=== PATIENT | male | born 1985 | race Caucasian/White ===

== ENCOUNTER 2022-03-13 15:59 | Observation (INO) ==
[2022-03-13 17:07] LABS: Basophils # (auto) 0.05 K/uL (0-0.2); Basophils % (auto) 0.7 %; Eosinophils # (auto) 0.07 K/uL (0-0.50); Hematocrit (blood only) 42.1 % (40.1-51.0); Hemoglobin 14.4 g/dl (14.0-18.0); Immature Granulocytes # (auto) 0.11 K/uL (0.00-0.02); Immature Granulocytes % (auto) 1.5 %; Lymphocytes # (auto) 1.35 K/uL (1.2-3.4); Lymphocytes % (auto) 18.7 %; Mean Corpuscular Hemoglobin 30.8 pg (25.0-34.0); Mean Corpuscular Hgb Conc 34.2 g/dL (32.0-36.0); Mean Corpuscular Volume 90.1 fL (80.0-100.0); Mean Platelet Volume 9.9 fL (9.4-12.4); Monocytes # (auto) 0.91 K/uL (0.24-0.82); Monocytes % (auto) 12.6 %; Neutrophils # (auto) 4.74 K/uL (1.4-6.5); Neutrophils % (auto) 65.5 %; Platelet Count 357 K/uL (130-400); RDW Standard Deviation 39.5 fL (36.4-46.3); Red Blood Count 4.67 M/uL (4.63-6.08); White Blood Count 7.23 K/ul (4.8-10.8)
[2022-03-13 17:42] LABS: BUN Creatinine Ratio 6.7 (10-20); Calcium 9.3 mg/dl (8.5-10.1); Creatinine Clr Calc Pharmacy 137.6 ml/min; Est GFR (Non-African American) 108.7 ml/min; Potassium 3.8 mmol/L (3.5-5.1)
[2022-03-13] MEDS ORDERED: MoRPHine SULFATE 10 MG/ML CARP/VIAL IV STA (18:20)
--- NOTE | 2022-03-13 18:29 | Emergency Department Note ---
History of Present Illness General Chief complaint: Pilonidal Cyst Stated complaint: ABCESS NEAR RECTUM Time Seen by Provider: 03/13/22 17:59 History of Present Illness Maximum Pain Intensity: 9 36-year-old male presents to the ED with a chief complaint of pain in the area of the anus and traveling towards the perineum. The patient states that he has had the pain for about a week and has been trying warm soaks and Tylenol. His symptoms have progressively worsened to the point where he has significant pain here today. Difficulty moving because of the pain. Home Medications Medication Instructions Recorded Confirmed Type Medical Marijuana 1 dose NA UD PRN as directed 03/13/22 03/13/22 History acetaminophen 500 mg tablet 1,000 mg PO Q6H PRN Pain 03/13/22 03/13/22 History (Tylenol Extra Strength) Allergies Allergy/AdvReac Type Severity Reaction Status Date / Time No Known Allergies Allergy Unverified 03/13/22 17:44 Past Med/Surg History Social History Smoking Status: Current every day smoker Tobacco Type: Cigarettes Feels Safe at Home: Yes Review of Systems A total of 10 systems reviewed and were otherwise negative Physical Exam Vital Signs Vital Signs - 24 hr 03/13/22 16:17 03/13/22 18:00 03/13/22 21:01 Temperature 36.8 C Temperature Source Temporal Artery Scan Pulse Rate 122 H Pulse Rate [Left Finger] 104 H 89 Pulse Rhythm [Left Finger] Pulse Strength [Left Finger] Respiratory Rate 18 16 Respiratory Effort / Characteristics Non-Labored Spontaneous Respiratory Depth Normal Respiratory Pattern Regular Blood Pressure 124/67 Blood Pressure [Left Arm] 166/112 H 155/87 H Blood Pressure Mean 86 Blood Pressure Mean [Left Arm] 130 109 Blood Pressure Position Sitting Pulse Oximetry 99 100 96 Oxygen Delivery Method Room Air Room Air Room Air Oxygen Flow Rate Sepsis Recent Fever Within 48 Hours No Sepsis New/Unexplained Change in Mental Status N/A Sepsis Action Taken by Nursing No Action Required 03/13/22 23:00 Temperature 36.6 C Temperature Source Oral Pulse Rate Pulse Rate [Left Finger] 102 H Pulse Rhythm [Left Finger] Regular Pulse Strength [Left Finger] Normal Respiratory Rate 18 Respiratory Effort / Characteristics Respiratory Depth Respiratory Pattern Blood Pressure Blood Pressure [Left Arm] 133/85 Blood Pressure Mean Blood Pressure Mean [Left Arm] 101 Blood Pressure Position Pulse Oximetry 100 Oxygen Delivery Method Oxymask Oxygen Flow Rate 4 Sepsis Recent Fever Within 48 Hours Sepsis New/Unexplained Change in Mental Status Sepsis Action Taken by Nursing CONSTITUTIONAL/VITAL SIGNS: Reviewed / noted above. GENERAL: Non-toxic in appearance. INTEGUMENTARY: Warm, dry, and [place]. HEAD: Normocephalic. EYES: without scleral icterus or trauma. ENT/OROPHARYNX: clear and moist. RESPIRATORY: No increased work of breathing. CARDIOVASCULAR: Regular rate and rhythm. GI/ABDOMEN: Soft and nontender. No organomegaly or pulsatile mass. PERINEUM: The patient does have some swelling in the area of the perineum from the anus. There is some induration in that area as well as exquisite tenderness. EXTREMITIES: Warm and well perfused. NEUROLOGICAL: Intact without focal deficits. PSYCHIATRIC: normal affect. MUSCULOSKELETAL: Normally developed with good muscle tone. TRIAGE NURSING DOCUMENTATION REVIEWED. Course Administered Medications Cefoxitin Sodium (Mefoxin) 2,000 mg in 60 mls @ 100 mls/hr IV ONCE STA Stop: 03/13/22 23:24 Last Admin: 03/13/22 22:25 Dose: 100 mls/hr Documented By: TAP Discontinued Medications Bupivacaine HCl (Bupivacaine 0.5 % 5 Mg/1 Ml Mpf 30ml Vial) Confirm Administered Dose 30 ml .ROUTE .STK-MED ONE Stop: 03/13/22 21:26 Last Admin: 03/13/22 22:46 Dose: 30 ml Documented By: NOAH Bupivacaine Liposome (Bupivacaine Liposome 1.3% 266 Mg/20 Ml Vial) Confirm Administered Dose 266 mg .ROUTE .STK-MED ONE Stop: 03/13/22 22:00 Last Admin: 03/13/22 22:47 Dose: 266 mg Documented By: NOAH Hydromorphone HCl (Hydromorphone Inj 2 Mg/Ml Syr/Vial) 2 mg IV NOW STA Stop: 03/13/22 18:47 Last Admin: 03/13/22 19:02 Dose: 2 mg Documented By: TONI Hydromorphone HCl (Hydromorphone Inj 2 Mg/Ml Syr/Vial) 2 mg IV NOW STA Stop: 03/13/22 19:51 Last Admin: 03/13/22 19:55 Dose: 2 mg Documented By: TONI Ioversol (Optiray 350 100ml) 84 ml IV ONCE ONE Stop: 03/13/22 19:21 Last Admin: 03/13/22 19:11 Dose: 84 ml Documented By: BRRodger Lidocaine HCl (Lidocaine 2% Jelly 5 Ml Tube) Confirm Administered Dose 5 ml EXT .STK-MED ONE Stop: 03/13/22 21:26 Last Admin: 03/13/22 22:47 Dose: Not Given Documented By: CLF Morphine Sulfate (Morphine Sulfate 10 Mg/Ml Carp/Vial) 6 mg IV NOW STA Stop: 03/13/22 18:21 Last Admin: 03/13/22 18:25 Dose: 6 mg Documented By: ML Medical Decision Making Differential Diagnosis Differential includes an abscess, fistula, infection, other. Medical Records Attestation: I reviewed the patient's medical records. Home Medications Current Medication List: was personally reviewed by me Laboratory Data Attestation: I reviewed the patient's lab results. Result diagrams: 03/13/22 16:50 03/13/22 16:50 Lab Results 03/13/22 03/13/22 Range/Units 16:50 16:50 WBC 7.23 (4.8-10.8) K/ul RBC 4.67 (4.63-6.08) M/uL Hgb 14.4 (14.0-18.0) g/dl Hct 42.1 (40.1-51.0) % MCV 90.1 (80.0-100.0) fL MCH 30.8 (25.0-34.0) pg MCHC 34.2 (32.0-36.0) g/dL RDW Std Deviation 39.5 (36.4-46.3) fL RDW Coeff of Lauryn 12.0 (11.5-14.5) % Plt Count 357 (130-400) K/uL MPV 9.9 (9.4-12.4) fL Immature Gran % (Auto) 1.5 % Neut % (Auto) 65.5 % Lymph % (Auto) 18.7 % Allen % (Auto) 12.6 % Eos % (Auto) 1.0 % Baso % (Auto) 0.7 % Neut # (Auto) 4.74 (1.4-6.5) K/uL Lymph # (Auto) 1.35 (1.2-3.4) K/uL Allen # (Auto) 0.91 H (0.24-0.82) K/uL Eos # (Auto) 0.07 (0-0.50) K/uL Baso # (Auto) 0.05 (0-0.2) K/uL Immature Gran # (Auto) 0.11 H (0.00-0.02) K/uL Sodium 140 (136-145) mmol/L Potassium 3.8 (3.5-5.1) mmol/L Chloride 104 (98-107) mmol/L Carbon Dioxide 27 (21-32) mmol/L Anion Gap 9 (3-11) BUN 6 (6-23) mg/dl Creatinine 0.90 (0.6-1.4) mg/dl Est Cr Clr Drug Dosing 137.6 ml/min Est GFR ( Amer) 126.0 ml/min Est GFR (Non-Af Amer) 108.7 ml/min BUN/Creatinine Ratio 6.7 L (10-20) Glucose 89 (70-99(Fasting)) mg/dl Calcium 9.3 (8.5-10.1) mg/dl Imaging Data Radiologist's Impression: Pelvis CT 03/13/22 18:21 CT pelvis w/IV con only CLINICAL HISTORY: Evaluate anal abscess. COMPARISON STUDY: No previous studies for comparison. TECHNIQUE: Axial images of the pelvis were obtained following intravenous injection of 84 cc of Optiray 350 IV. Sagittal and coronal reconstructions were viewed. Automated exposure control was utilized for the study. A dose lowering technique was utilized adhering to the principles of ALARA. FINDINGS: Note is made of a rim-enhancing perianal fluid collection consistent with an abscess that measures 2.2 x 2 x 1.3 cm. The relationship to the anus is difficult to determine on this exam although this is likely anterior to the anus. No supralevator component is present. No additional fluid collections are present. The caliber and wall thickness of visualized small and large bowel are normal. The appendix is normal. There is no pelvic lymphadenopathy. No soft tissue gas is identified on this exam. No acute fracture or suspicious lesion within visualized skeletal structures is present. Bladder is unremarkable by CT. Major vasculature is patent. IMPRESSION: 2.2 x 2 x 1.3 cm perianal abscess, likely anterior to the anus. ACT 112: Negative or not required by law. Electronically signed by: Kendall Schwartz M.D. 03/13/2022 7:37 PM MDM Narrative 36-year-old male presents with pain in the area of the anus and perineum. Symptoms started about a week ago and significantly worsened to the point where he is unable to move without significant pain. He has exquisite tenderness with minimal palpation of the site of the perineum. His CBC and chemistry panel was unremarkable. CT scan shows a 2 x 2 centimeter perianal abscess. I did speak with general surgery about this. Dr. Aguilar took the patient to the OR for drainage. Impression & Plan Perianal abscess Discharge Plan Visit Data Chief Complaint: Pilonidal Cyst Stated Complaint: ABCESS NEAR RECTUM ED Provider: Jules Chen Discharge Problem: Perianal abscess Discharge Instructions Interventions: ED Discharge Assessment Last Done: 03/13/22 21:12 Forms Stand Alone Forms: My [facility] Prescriptions Prescriptions: No Action acetaminophen [Tylenol Extra Strength] 500 mg Tablet 1,000 mg PO Q6H PRN (Reason: Pain) Medical Marijuana 1 dose NA UD PRN (Reason: as directed) Referrals Referrals: PCP,NO [Primary Care Provider] -
[2022-03-13] MEDS ORDERED: HYDROmorphone INJ 2 MG/ML SYR/VIAL IV STA ×2 (18:46→19:50)
[2022-03-13] MEDS ORDERED: OPTIRAY 350 100ml IV ONE (19:20)
--- NOTE | 2022-03-13 19:39 | CT Scan Report ---
CT pelvis w/IV con only CLINICAL HISTORY: Evaluate anal abscess. COMPARISON STUDY: No previous studies for comparison. TECHNIQUE: Axial images of the pelvis were obtained following intravenous injection of 84 cc of Optir ay 350 IV. Sagittal and coronal reconstructions were viewed. Automated exposure control was utilized for the study. A dose lowering technique was utilized adhering to the principles of ALARA. FINDINGS: Note is made of a rim-enhancing perianal fluid collection consistent with an abscess that m easures 2.2 x 2 x 1.3 cm. The relationship to the anus is difficult to determine on this exam althoug h this is likely anterior to the anus. No supralevator component is present. No additional fluid darwin ections are present. The caliber and wall thickness of visualized small and large bowel are normal. T he appendix is normal. There is no pelvic lymphadenopathy. No soft tissue gas is identified on this e xam. No acute fracture or suspicious lesion within visualized skeletal structures is present. Bladder is unremarkable by CT. Major vasculature is patent. IMPRESSION: 2.2 x 2 x 1.3 cm perianal abscess, likely anterior to the anus. ACT 112: Negative or not required by law. Electronically signed by: Kendall Schwartz M.D. 03/13/2022 7:37 PM
--- NOTE | 2022-03-13 20:42 | History & Physical Report ---
Date of Service March 13, 2022 Assessment & Plan (1) Perianal abscess: Plan: Indurated soft tissue and CT findings consistent with perianal abscess. Patient unable to tolerate bedside I&D. Plan to proceed to the OR tonight for incision and drainage of abscess. Risks to include, but not limited to, bleeding, infection, recurrent abscess, fistula. History of Present Illness Primary Care Provider: NO PCP Darrell is being seen today for evaluation of perirectal abscess. He reports pain started one week ago, has been increasing in intensity. He has had no drain age from the area. Pain is aggravated by coughing and moving. He reports remote history of MRSA from a gluteal abscess about 9 years ago, that was not near his current area of pain. He underwent CT in ED today which reveals IMPRESSION: 2.2 x 2 x 1.3 cm perianal abscess, likely anterior to the anus. He has no other significant pact medical history. He does smoke medical marijuana, has not had any in the past week. Allergies Allergy/AdvReac Type Severity Reaction Status Date / Time No Known Allergies Allergy Unverified 03/13/22 17:44 Home Medications Medication Instructions Recorded Confirmed Type Medical Marijuana 1 dose NA UD PRN as directed 03/13/22 03/13/22 History acetaminophen 500 mg tablet 1,000 mg PO Q6H PRN Pain 03/13/22 03/13/22 History (Tylenol Extra Strength) Past Med/Surg History Social History Smoking Status: Current every day smoker Tobacco Type: Cigarettes Feels Safe at Home: Yes Review of Systems Review of Systems: All systems reviewed & are unremarkable except as noted in HPI & below Physical Exam Physical Exam: Temp Pulse Resp BP Pulse Ox O2 Del Method 36.8 C 104 H 18 166/112 H 100 03/13/22 16:17 03/13/22 18:00 03/13/22 16:17 03/13/22 18:00 03/13/22 18:00 03/13/22 18:00 Constitutional: well developed and well nourished; no acute distress and + uncomfortable Eyes: PERRL, conjunctivae normal, anicteric sclerae Neck: trachea midline, no thyromegaly Respiratory: normal respiratory effort, lungs clear to auscultation Cardiovascular: RRR, no murmur, no edema Gastrointestinal (Abdomen): normal bowel sounds, soft, nontender, no hepatosplenomegaly + indurated area anterior to the anus with significant pain to mild touch. No fluctuance. Minimal erythema of the overlying soft tissue Musculoskeletal: no cyanosis or clubbing, extremities motor strength 5/5 Skin: no rashes, warm and dry + perianal abscess as noted above Results & Data Results & Data ([facility]) Vital Signs (Past 12 Hours) Vital Signs Temp Pulse Pulse Resp BP BP Pulse Ox 03/13/22 18:00 104 H 166/112 H 100 03/13/22 16:17 36.8 C 122 H 18 124/67 99 O2 Del Method 03/13/22 18:00 Room Air 03/13/22 16:17 Room Air Laboratory Results Lab Results 03/13/22 03/13/22 Range/Units 16:50 16:50 WBC 7.23 (4.8-10.8) K/ul RBC 4.67 (4.63-6.08) M/uL Hgb 14.4 (14.0-18.0) g/dl Hct 42.1 (40.1-51.0) % MCV 90.1 (80.0-100.0) fL MCH 30.8 (25.0-34.0) pg MCHC 34.2 (32.0-36.0) g/dL RDW Std Deviation 39.5 (36.4-46.3) fL RDW Coeff of Lauryn 12.0 (11.5-14.5) % Plt Count 357 (130-400) K/uL MPV 9.9 (9.4-12.4) fL Immature Gran % (Auto) 1.5 % Neut % (Auto) 65.5 % Lymph % (Auto) 18.7 % Yancey % (Auto) 12.6 % Eos % (Auto) 1.0 % Baso % (Auto) 0.7 % Neut # (Auto) 4.74 (1.4-6.5) K/uL Lymph # (Auto) 1.35 (1.2-3.4) K/uL Yancey # (Auto) 0.91 H (0.24-0.82) K/uL Eos # (Auto) 0.07 (0-0.50) K/uL Baso # (Auto) 0.05 (0-0.2) K/uL Immature Gran # (Auto) 0.11 H (0.00-0.02) K/uL Sodium 140 (136-145) mmol/L Potassium 3.8 (3.5-5.1) mmol/L Chloride 104 (98-107) mmol/L Carbon Dioxide 27 (21-32) mmol/L Anion Gap 9 (3-11) BUN 6 (6-23) mg/dl Creatinine 0.90 (0.6-1.4) mg/dl Est Cr Clr Drug Dosing 137.6 ml/min Est GFR ( Amer) 126.0 ml/min Est GFR (Non-Af Amer) 108.7 ml/min BUN/Creatinine Ratio 6.7 L (10-20) Glucose 89 (70-99(Fasting)) mg/dl Calcium 9.3 (8.5-10.1) mg/dl Diagnostic Findings CT pelvis w/IV con only CLINICAL HISTORY: Evaluate anal abscess. COMPARISON STUDY: No previous studies for comparison. TECHNIQUE: Axial images of the pelvis were obtained following intravenous injection of 84 cc of Optiray 350 IV. Sagittal and coronal reconstructions were viewed. Automated exposure control was utilized for the study. A dose lowering technique was utilized adhering to the principles of ALARA. FINDINGS: Note is made of a rim-enhancing perianal fluid collection consistent with an abscess that measures 2.2 x 2 x 1.3 cm. The relationship to the anus is difficult to determine on this exam although this is likely anterior to the anus. No supralevator component is present. No additional fluid collections are present. The caliber and wall thickness of visualized small and large bowel are normal. The appendix is normal. There is no pelvic lymphadenopathy. No soft tissue gas is identified on this exam. No acute fracture or suspicious lesion within visualized skeletal structures is present. Bladder is unremarkable by CT. Major vasculature is patent. IMPRESSION: 2.2 x 2 x 1.3 cm perianal abscess, likely anterior to the anus. ACT 112: Negative or not required by law. Supervising Physician Co-Signing Physician Notes Patient seen and examined, labs and imaging reviewed, agree with above. 36-year-old male with 1 week history of perianal pain presented with perirectal abscess. On exam he is afebrile stable vitals. Cellulitis small mount of fluctuance around his anus per the report. CT personally viewed and interpreted and shows a small abscess with some surrounding cellulitis. This is likely anterior to the anus. Discussed his options to include antibiotics versus bedside drainage versus drainage in the operating room, and due to the pain he elects for drainage in the operating room. Plan for anorectal exam under anesthesia, incision and drainage of perirectal abscess The risk the procedure were discussed to include but not limited to bleeding, infection, recurrence, fistula, need for future more extensive surgery, damage surrounding structures, and the risk of anesthesia Keep for overnight ops, likely DC in the morning
[2022-03-13] MEDS ORDERED: ONDANSETRON INJ 2 MG/ML 2 ML VIAL IV PRN (21:10)
[2022-03-13] MEDS ORDERED: HYDROmorphone INJ 1 MG/ML SYRINGE IV PRN (21:10)
[2022-03-13] MEDS ORDERED: fentaNYL citrate 100 MCG/2 ML VIAL IV PRN (21:10)
[2022-03-13] MEDS ORDERED: ATROPINE SULFATE 0.1 MG/ML 10ML SYR IV PRN (21:10)
[2022-03-13] MEDS ORDERED: ePHEDrine sulfate 50 MG/ML AMP IV PRN (21:10)
--- NOTE | 2022-03-13 21:11 | Anesthesiology Consultation ---
Date of Service March 13, 2022 Assessment & Plan (1) Encounter for pre-operative examination: Chart Review Chart Review: Acceptable Risk for Surgery and Patient NOT seen in Pre Admission Testing Consults Requested none History Surgery Operation Date: 03/13/22 20:35 Proposed Procedures p Rectal Surgery - Siomn Aguilar DO, FACS Height/Weight Height: 6 ft Weight: 100 kg Allergies Allergy/AdvReac Type Severity Reaction Status Date / Time No Known Allergies Allergy Unverified 03/13/22 17:44 Medications Home Medications Medication Instructions Recorded Confirmed Last Taken Medical Marijuana 1 dose NA UD PRN as directed 03/13/22 03/13/22 03/13/22 acetaminophen 500 mg tablet 1,000 mg PO Q6H PRN Pain 03/13/22 03/13/22 03/13/22 (Tylenol Extra Strength) NPO Last Intake of Fluids Comment: patient reports a sip of water around 1930 Time Last Intake of Solids: 09:00 Past Medical History health, no chronic issues. denies snoring Exercise / Class Metabolic Activity II 4-5 Yardwork/Stairs/Walk up hill Past Surgical History tonsil as a child. no anesthesia problems. Past Anesthesia History No Hx of Anesthesia Complications and No Family Hx of Anesthesia Complications History of PONV No Hx of PONV and No Hx of Motion Sickness Social History Smoking Status: Current every day smoker Physical Exam Vital Signs Last Vital Signs Temp 36.8 C 03/13/22 16:17 Pulse 89 03/13/22 21:01 Resp 16 03/13/22 21:01 BP 155/87 H 03/13/22 21:01 Pulse Ox 96 03/13/22 21:01 O2 Del Method 03/13/22 21:01 Testing Laboratory Results 03/13/22 16:50 03/13/22 16:50
[2022-03-13] MEDS ORDERED: BUPIVACAINE 0.5 % 5 MG/1 ML MPF 30ML VIAL ONE (21:25)
[2022-03-13] MEDS ORDERED: LIDOCAINE 2% JELLY 5 ML TUBE EXT ONE (21:25)
[2022-03-13] MEDS ORDERED: ONDANSETRON INJ 2 MG/ML 2 ML VIAL ONE (21:30)
[2022-03-13] MEDS ORDERED: DEXAMETHASONE SOD INJ 4 MG/ML VIAL ONE (21:30)
[2022-03-13] MEDS ORDERED: SUCCINYLCHOLINE CHLORIDE 20 MG/ML 10 ML VIAL IV ONE (21:30)
[2022-03-13] MEDS ORDERED: PROPOFOL IV EMULSION 10 MG/ML 20 ML VIAL IV ONE (21:30)
[2022-03-13] MEDS ORDERED: MIDAZOLAM HCL 1 MG/ML 2ML VIAL ONE (21:31)
[2022-03-13] MEDS ORDERED: fentaNYL citrate 100 MCG/2 ML VIAL ONE ×2 (21:31→22:32)
[2022-03-13] MEDS ORDERED: BUPIVACAINE LIPOSOME 1.3% 266 MG/20 ML VIAL ONE (21:59)
[2022-03-13] MEDS: cefOXitin 2,000 MG/60 ML BAG IV STA (22:25)
--- NOTE | 2022-03-13 22:47 | Operative Report ---
PG Post Operative Report Pre & Post Diagnosis Operation Date: 03/13/22 20:35 Pre-Op Diagnosis: Rectal Abscess Post-Op Diagnosis: Rectal Abscess I identified the patient and participated in the time-out.: Yes Procedure Operation Date: 03/13/22 20:35 Actual Procedures p Incision and Drainage of Rectal Abscess(Not Applicable) - Simon Aguilar DO, JEANIE Surgeon Simon Aguilar DO, JEANIE Application Support Analyst Melony Matos PA Estimated Blood Loss 5 Findings Consistent with Post-Op Diagnosis Abscess anterior to anus incised and drained, sent for cultures. Exparel injected, good hemostasis. Wound packed with 4 x 4 gauze. Specimens Rectal abscess culture Anesthesia Type General Complications none Disposition Accompanied Patient To Recovery: No Disposition: Recovery Room Indications 36-year-old male presented to the emergency department with signs and symptoms of perirectal abscess confirmed by CT scan. Offered outpatient observation with antibiotics versus incision and drainage at the bedside versus incision and drainage in the OR, patient elected for OR due to pain. Plan for anorectal exam under anesthesia with incision and drainage of rectal abscess. The risks of the procedure were discussed, all questions were answered, and the patient agreed to proceed with surgery as planned. Description of Procedure The patient was properly identified, consented, and taken to the operating room where he was placed in the supine position. General endotracheal anesthesia was induced. The patient was then placed in high lithotomy position. SCDs and a safety belt were placed. The patient's anus and buttocks were prepped and draped in the standard sterile fashion. Surgical timeout was performed and all parties were in agreement that this was the correct patient and procedure to be performed and we continued as planned. The external anal exam revealed an area of fluctuance and induration just anterior to the anus. Digital rectal exam revealed no significant abnormality. An anoscope was inserted and the exam revealed no obvious fistulous opening. Local anesthetic in the form of 0.5% Marcaine was injected around the anus. An elliptical incision was made overlying the area of fluctuance and approximately 20 cc of bloody purulent drainage was expressed. This was sent for culture. The wound was explored and no undrained fluid collections or loculations were identified. It did track posterior towards the anus and rectal wall, but no obvious fistula was identified. The wound was irrigated and hemostasis was achieved. Exparel was injected. The wound was packed with a 4 x 4 gauze. Fluffed 4 x 4 gauze, an ABD, and disposable knit underwear were placed as a dressing. Anesthesia was ceased, the patient was transferred to the PACU for recovery in stable condition. All sponge, instrument, needle counts were correct at the conclusion of the procedure. The patient tolerated the procedure well. The physician's patient clerical assistant was present and scrubbed for the entire to the case. She was critical in positioning the patient, prepping and draping, retraction and exposure, drainage of the abscess, placement of the dressings. I attest to the content of the Intraoperative Record and any orders documented therein. Any exceptions are noted below.
--- NOTE | 2022-03-13 23:13 | Anesthesiology Progress Note ---
Date of Service March 13, 2022 Anesthesia Post Procedure Vital Signs Vital Signs: Temp Pulse Pulse Resp BP BP Pulse Ox 03/13/22 23:00 36.6 C 102 H 18 133/85 100 03/13/22 21:01 89 16 155/87 H 96 03/13/22 18:00 104 H 166/112 H 100 03/13/22 16:17 36.8 C 122 H 18 124/67 99 O2 Del Method O2 Flow Rate 03/13/22 23:00 Oxymask 4 03/13/22 21:01 Room Air 03/13/22 18:00 Room Air 03/13/22 16:17 Room Air Pain Intensity Buttock: Pain Intensity: 0 Transfer of Care Handoff Completed per policy Notes Mental Status: alert / awake / arousable and participated in evaluation Patient Amnestic to Procedure: Yes Nausea / Vomiting: adequately controlled Pain: adequately controlled Airway Patency, RR, SpO2: stable & adequate BP & HR: stable & adequate Hydration State: stable & adequate Anesthetic Complications: no major complications apparent and Pt Satisfied with anesthetic care
[2022-03-14] MEDS ORDERED: PROMETHAZINE HCL 12.5 MG in SODIUM CHLORIDE 0.9% 50 ML IV PRN (00:40)
[2022-03-14] MEDS ORDERED: MoRPHine SULFATE 4 MG/ML 1 ML CARP\\VIAL IV PRN (00:40)
[2022-03-14] MEDS ORDERED: ONDANSETRON INJ 2 MG/ML 2 ML VIAL IV PRN (00:40)
[2022-03-14] MEDS ORDERED: MoRPHine SULFATE 2 MG/ML CARP IV PRN (00:40)
[2022-03-14] MEDS ORDERED: oxyCODONE/ACETAMINOPHEN 5mg/325mg TAB PO PRN ×2 (00:40)
[2022-03-14] MEDS ORDERED: ACETAMINOPHEN 325 MG TAB PO PRN (00:40)
[2022-03-14] MEDS ORDERED: D5W AND 1/2NSS 1,000 ML IV SCH (00:40)
[2022-03-14] MEDS: cefOXitin 2,000 MG/60 ML BAG IV STA (01:28)
--- NOTE | 2022-03-14 01:54 | Surgery Progress Note ---
Date of Service March 14, 2022 Assessment & Plan (1) Perianal abscess: Plan: Patient is recently S/P I&D of uncomplicated perianal abscess. He was given a dose of pain medication. He is currently on IV clindamycin pending culture results. Will closely monitor vitals overnight, although I suspect this may be a reaction from anesthesia and pain. If stable in AM, anticipate d/c home. Admission and Anticipated Discharge Date Admission Date: March 13, 2022 Subjective Patient seen at bedside after alert from nurse regarding vitals and tremor. BP 176/104, HR 120, Temp 38.6. He denies CP, SOB or rectal pain. Physical Exam Physical Exam: Patient appears calm, stable with minor shakes/chills. Respiratory: normal respiratory effort, lungs clear to auscultation Cardiovascular: RRR, no murmur, no edema Results & Data ([facility]) Vital Signs (Past 12 Hours) Vital Signs Temp Pulse Pulse Resp BP BP Pulse Ox 03/14/22 01:26 38.6 C H 120 H 18 176/104 H 97 03/14/22 00:45 36.6 C 93 H 16 148/92 H 98 03/14/22 00:43 36.6 C 93 H 16 148/92 H 98 03/14/22 00:27 36.8 C 95 H 18 165/95 H 97 03/14/22 00:00 36.8 C 97 H 18 157/86 H 94 03/13/22 23:50 36.8 C 98 H 18 126/91 94 03/13/22 23:40 36.8 C 96 H 18 140/96 95 03/13/22 23:30 36.8 C 94 H 18 137/82 96 03/13/22 23:20 36.9 C 97 H 18 139/85 96 03/13/22 23:10 36.8 C 92 H 18 141/84 H 92 03/13/22 23:00 36.6 C 102 H 18 133/85 100 03/13/22 21:01 89 16 155/87 H 96 03/13/22 18:00 104 H 166/112 H 100 03/13/22 16:17 36.8 C 122 H 18 124/67 99 O2 Del Method O2 Flow Rate 03/14/22 01:26 Room Air 03/14/22 00:45 Room Air 03/14/22 00:43 Room Air 03/14/22 00:27 Room Air 03/14/22 00:00 Room Air 03/13/22 23:50 Room Air 03/13/22 23:40 Room Air 03/13/22 23:30 Room Air 03/13/22 23:20 Room Air 03/13/22 23:10 Room Air 03/13/22 23:00 Oxymask 4 03/13/22 21:01 Room Air 03/13/22 18:00 Room Air 03/13/22 16:17 Room Air PG Care Time/CCT Total # of Minutes Spent Total Time Spent with Patient: Total time spent is greater than 50% in coordination of care (as documented) at patient's floor/unit and/or counseling patient: Coding Level of Care Code None Diagnoses Perianal abscess K61.0
[2022-03-14] MEDS ORDERED: GABAPENTIN 1200MG ALCOHOL WITHDRAWAL LOAD PO STA (02:34)
[2022-03-14] MEDS ORDERED: GABAPENTIN 600 MG TAB PO ONE (02:34)
[2022-03-14] MEDS ORDERED: LORazepam 1 MG TAB PO PRN (02:35)
[2022-03-14] MEDS: CLINDAMYCIN/D5W 600 MG/50 ML BAG IV SCH ×2 (03:47→12:46)
--- NOTE | 2022-03-14 05:16 | Surgery Progress Note ---
Date of Service March 14, 2022 Assessment & Plan (1) Perianal abscess: Plan: Stable s/p I&D. Plan to d/c this AM after seen by Dr. Aguilar. (2) Alcohol withdrawal: Plan: Vitals stable. Admission and Anticipated Discharge Date Admission Date: March 13, 2022 Supervising Physician Co-Signing Physician Notes Patient seen examined, labs reviewed, agree with above. POD #1 I&D perirectal abscess. Feeling much better. Slightly tachycardic overnight may be due to with drawl from alcohol but also to SIRS response from infection. Packing removed, good granulation tissue, no significant bleeding. Cellulitis already improving. Discharge to home, warm water soaks, continue antibiotics. P.o. pain meds. Follow-up in 1 to 2 weeks in general surgery clinic. Return precautions given. Subjective Patent vitals were not improving. Upon questioning, he admits to significant alcohol intake. He did have a quart of whiskey this morning. He typically drinks 6 beers during the day, did not today due to rectal pain and being in the ED. AWSS score obtained- 7. Alcohol withdrawal protocol initiated. Now patient is stable, afebrile, normalized BP and HR. He is sleeping without tremor. Physical Exam Physical Exam: Temp Pulse Resp BP Pulse Ox O2 Del Method O2 Flow Rate 36.9 C 99 H 18 134/79 95 4 03/14/22 04:20 03/14/22 04:20 03/14/22 04:20 03/14/22 04:20 03/14/22 04:20 03/14/22 04:20 03/13/22 23:00 patient asleep Results & Data ([facility]) Vital Signs (Past 12 Hours) Vital Signs Temp Pulse Resp BP Pulse Ox O2 Del Method O2 Flow Rate 03/14/22 04:20 36.9 C 99 H 18 134/79 95 Room Air 03/14/22 03:31 37.9 C H 112 H 18 135/77 93 Room Air 03/14/22 02:21 39.1 C H 129 H 20 141/79 H 94 Room Air 03/14/22 01:49 38.8 C H 124 H 18 157/90 H 97 Room Air 03/14/22 01:26 38.6 C H 120 H 18 176/104 H 97 Room Air 03/14/22 00:45 36.6 C 93 H 16 148/92 H 98 Room Air 03/14/22 00:43 36.6 C 93 H 16 148/92 H 98 Room Air 03/14/22 00:27 36.8 C 95 H 18 165/95 H 97 Room Air 03/14/22 00:00 36.8 C 97 H 18 157/86 H 94 Room Air 03/13/22 23:50 36.8 C 98 H 18 126/91 94 Room Air 03/13/22 23:40 36.8 C 96 H 18 140/96 95 Room Air 03/13/22 23:30 36.8 C 94 H 18 137/82 96 Room Air 03/13/22 23:20 36.9 C 97 H 18 139/85 96 Room Air 03/13/22 23:10 36.8 C 92 H 18 141/84 H 92 Room Air 03/13/22 23:00 36.6 C 102 H 18 133/85 100 Oxymask 4 03/13/22 21:01 89 16 155/87 H 96 Room Air 03/13/22 18:00 104 H 166/112 H 100 Room Air PG Care Time/CCT Total # of Minutes Spent Total Time Spent with Patient: Total time spent is greater than 50% in coordination of care (as documented) at patient's floor/unit and/or counseling patient: Coding Level of Care Code None Diagnoses Perianal abscess K61.0 Alcohol withdrawal F10.939
[2022-03-14] MEDS ORDERED: GABAPENTIN 600 MG TAB PO SCH ×2 (08:45→22:45)
[2022-03-16] MEDS ORDERED: GABAPENTIN 600 MG TAB PO SCH (02:45)
[2022-03-17] MEDS ORDERED: GABAPENTIN 600 MG TAB PO SCH (14:45)
--- NOTE | 2022-03-19 11:33 | Discharge Summary ---
Date of Service March 19, 2022 Admission HPI Per Admitting Provider Darrell is being seen today for evaluation of perirectal abscess. He reports pain started one week ago, has been increasing in intensity. He has had no drainage from the area. Pain is aggravated by coughing and moving. He reports remote history of MRSA from a gluteal abscess about 9 years ago, that was not near his current area of pain. He underwent CT in ED today which reveals IMPRESSION: 2.2 x 2 x 1.3 cm perianal abscess, likely anterior to the anus. He has no other significant pact medical history. He does smoke medical marijuana, has not had any in the past week. Principal Diagnosis Perirectal abscess Discharge Exam Gastrointestinal (Abdomen) Packing removed, no cellulitis Discharge Data Allergies Allergy/AdvReac Type Severity Reaction Status Date / Time No Known Allergies Allergy Unverified 03/13/22 17:44 Procedures Performed Operation Date: 03/13/22 20:35 Actual Procedures p Incision and Drainage of Rectal Abscess(Not Applicable) - Simon Aguilar DO, FACS Ordered Studies 03/13/22 18:21 CT pelvis w/IV con only Stat Hospital Course (1) Perianal abscess: Patient was taken to the operating room on the evening of 13 March 2022 where an exam under anesthesia and incision and drainage of perirectal abscess was performed. He was admitted to the [facility] floor for postop convalescence. His pain was improved the following morning. The dressing was removed and he was discharged home with plans for follow-up in the general surgery clinic in 1 to 2 weeks. He was discharged on antibiotics and pain medications. Total Time Total Time Spent Total Time Spent (In Minutes): 60 min Discharge Plan Discharge Items Patient Disposition: Home - Self-Care Reason For Visit: POST OP, SEAN RECTAL ABSCESS Discharge Diagnosis: s/p I&D perianal abscess Activity: As commented below Non-emergency contact: Surgeon Call non-emergency contact if: your pain is not controlled and you have a fever Follow-up/Referrals: Simon Aguilar DO, FACS [Physician] - 03/28/22 9:15 am (Call to schedule follow up in clinic within 2 weeks) PCP,NO [Primary Care Provider] - Diet: Regular Addtl Attending Provider Instructions: ACTIVITY RECOMMENDATIONS: __Normal activities _x_No bending, lifting or straining __No driving __Driving allowed when you are off pain medications _x_Walking permitted __You should have help at home for ___ days DRESSINGS: _x_No dressings required __Keep dressings dry/in place until first office visit __Remove dressings ___ and leave dressings off __Apply ice ___ days __Remove dressings and reapply garment __Apply antibiotic ointment (Bacitracin, Neosporin, etc) to wounds 3-4 times/day for 10 days BATHING: __Keep dressings dry __Sponge bathing permitted __Showering permitted __No swimming, hot tubs or soaking in a tub _x_ Start Sitz baths at least daily upon discharge. Submerge surgical area in a small amount of warm water wiht Epsom salts. You may do this 3-4x a day to promote healing. MEDICATIONS: Resume previous medications unless instructed otherwise by your surgeon. __Do not use aspirin, Motrin, Advil or Ibuprofen as these may promote bleeding. Please use Tylenol. _x_Prescription(s) provided: Antibiotics and Pain medication will be sent to the pharmacy for you OTHER INSTRUCTIONS: __Record drain output 2-3 times per day SPECIAL CARE INSTRUCTIONS: * It is normal to have a mild fever after surgery. If your temperature is higher than 101.5 degrees F, please call the office at [phone]. * Constipation is a typical side effect of pain medication. An [id number] stool softener will help relieve this. FOLLOW UP VISIT: If not already scheduled, please call the office, , when you return home after surgery. Pending Studies at Discharge: Yes Studies:: culture Stand-Alone Forms: My [facility] [employer] Pain - Opioid Pain Management, Work/School Release Medications and DC Order Prescriptions: New sulfamethoxazole-trimethoprim [Bactrim DS] 800-160 mg tablet 1 tab PO BID 10 Days Qty: 20 0RF oxycodone-acetaminophen [Endocet] 5-325 mg tablet 1 tab PO Q4H Qty: 14 0RF Rx Instructions: initial therapy Dr. Coronel [id number] Continued acetaminophen [Tylenol Extra Strength] 500 mg Tablet 1,000 mg PO Q6H PRN (Reason: Pain) Medical Marijuana 1 dose NA UD PRN (Reason: as directed) Discharge Orders: Discharge Order (Routine); Ordered 03/14/22 Ordered By: Arianna Neves/Other Patient Handouts: Taking a Sitz Bath Admission Data Admit Date/Time: 03/13/22 23:01 Attending Provider: Simon Aguilar Admit Provider: Simon Aguilar Primary Care Provider: PCP,NO Other Interventions: Discharge Summary Assessment (RN) Last Done: 03/14/22 13:41 Coding Level of Care Code OBSERV/HOSP SAME DATE LVL 1 Diagnoses Perianal abscess K61.0
--- NOTE | 2022-03-19 11:48 | Discharge Summary ---
Date of Service March 19, 2022 Admission HPI Per Admitting Provider Darrell is being seen today for evaluation of perirectal abscess. He reports pain started one week ago, has been increasing in intensity. He has had no drainage from the area. Pain is aggravated by coughing and moving. He reports remote history of MRSA from a gluteal abscess about 9 years ago, that was not near his current area of pain. He underwent CT in ED today which reveals IMPRESSION: 2.2 x 2 x 1.3 cm perianal abscess, likely anterior to the anus. He has no other significant pact medical history. He does smoke medical marijuana, has not had any in the past week. Admission Exam Per Admitting Provider indurated area anterior perianal Principal Diagnosis perirectal abscess Discharge Data Allergies Allergy/AdvReac Type Severity Reaction Status Date / Time No Known Allergies Allergy Unverified 03/13/22 17:44 Procedures Performed Operation Date: 03/13/22 20:35 Actual Procedures p Incision and Drainage of Rectal Abscess(Not Applicable) - Simon Aguilar DO, FACS Ordered Studies 03/13/22 18:21 CT pelvis w/IV con only Stat Discharge Plan Discharge Items Patient Disposition: Home - Self-Care Reason For Visit: POST OP, SEAN RECTAL ABSCESS Discharge Diagnosis: s/p I&D perianal abscess Activity: As commented below Non-emergency contact: Surgeon Call non-emergency contact if: your pain is not controlled and you have a fever Follow-up/Referrals: Simon Aguilar DO, FACS [Physician] - 03/28/22 9:15 am (Call to schedule follow up in clinic within 2 weeks) PCP,NO [Primary Care Provider] - Diet: Regular Addtl Attending Provider Instructions: ACTIVITY RECOMMENDATIONS: __Normal activities _x_No bending, lifting or straining __No driving __Driving allowed when you are off pain medications _x_Walking permitted __You should have help at home for ___ days DRESSINGS: _x_No dressings required __Keep dressings dry/in place until first office visit __Remove dressings ___ and leave dressings off __Apply ice ___ days __Remove dressings and reapply garment __Apply antibiotic ointment (Bacitracin, Neosporin, etc) to wounds 3-4 times/day for 10 days BATHING: __Keep dressings dry __Sponge bathing permitted __Showering permitted __No swimming, hot tubs or soaking in a tub _x_ Start Sitz baths at least daily upon discharge. Submerge surgical area in a small amount of warm water wiht Epsom salts. You may do this 3-4x a day to promote healing. MEDICATIONS: Resume previous medications unless instructed otherwise by your surgeon. __Do not use aspirin, Motrin, Advil or Ibuprofen as these may promote bleeding. Please use Tylenol. _x_Prescription(s) provided: Antibiotics and Pain medication will be sent to the pharmacy for you OTHER INSTRUCTIONS: __Record drain output 2-3 times per day SPECIAL CARE INSTRUCTIONS: * It is normal to have a mild fever after surgery. If your temperature is higher than 101.5 degrees F, please call the office at [phone]. * Constipation is a typical side effect of pain medication. An [id number] stool softener will help relieve this. FOLLOW UP VISIT: If not already scheduled, please call the office, , when you return home after surgery. Pending Studies at Discharge: Yes Studies:: culture Stand-Alone Forms: [facility] Pain - Opioid Pain Management, Work/School Release Medications and DC Order Prescriptions: New sulfamethoxazole-trimethoprim [Bactrim DS] 800-160 mg tablet 1 tab PO BID 10 Days Qty: 20 0RF oxycodone-acetaminophen [Endocet] 5-325 mg tablet 1 tab PO Q4H Qty: 14 0RF Rx Instructions: initial therapy Dr. Coronel [id number] Continued acetaminophen [Tylenol Extra Strength] 500 mg Tablet 1,000 mg PO Q6H PRN (Reason: Pain) Medical Marijuana 1 dose NA UD PRN (Reason: as directed) Discharge Orders: Discharge Order (Routine); Ordered 03/14/22 Ordered By: Arianna Neves/Other Patient Handouts: Taking a Sitz Bath Admission Data Admit Date/Time: 03/13/22 23:01 Attending Provider: Simon Aguilar Admit Provider: Simon Aguilar Primary Care Provider: PCP,NO Other Interventions: Discharge Summary Assessment (RN) Last Done: 03/14/22 13:41 Coding
== END 2022-03-14 15:30 | disposition home or self-care (01) ==
LOC: ED 15:59 → 3E 21:12 → OR 21:12
DX: K61.1 Rectal abscess; F10.239 Alcohol dependence with withdrawal, unspecified; F17.210 Nicotine dependence, cigarettes, uncomplicated; Z20.822 Contact with and (suspected) exposure to COVID-19; Z95.2 Presence of prosthetic heart valve